=== PATIENT | female | born 1960 | race African-American/Black ===

== ENCOUNTER 2020-10-06 17:46 | Emergency (ER) | payer MEDICAID ==
[~2020-10-06] VITALS: Ht 172.7 cm; Wt 72.6 kg
[~2020-10-06 17:46] MED LIST: AMLO10TA13 PO; LISI-275 PO
[2020-10-06 18:24] VITALS: BP 160/89
[2020-10-06 20:15] LABS: Basophils # (auto) 0 10 ^3/uL (0-0.2); Basophils % (auto) 0.2 % (0.0-2.0); Monocytes # (auto) 0.5 10 ^3/uL (0-1.3); Nucleated Red Blood Cells % 0.1 %
[2020-10-06 20:17] LABS: Eosinophils # (auto) 0 10 ^3/uL (0-0.8); Eosinophils % (auto) 0.4 % (0.0-7.0); Hematocrit 41.8 % (36.0-46.0); Hemoglobin 13.9 g/dL (12.2-16.2); Lymphocytes % (auto) 20.3 % (10.0-50.0); Mean Corpuscular Hemoglobin 26.7 pg (28.0-32.0); Mean Corpuscular Hgb Conc. 33.2 g/dL (32.0-36.0); Mean Corpuscular Volume 80.3 fL (80.0-100.0); Neutrophils # (auto) 7.5 10 ^3/uL (1.6-8.6); Neutrophils % (auto) 74.1 % (37.0-80.0); Platelet Count (auto) 221 10^3/uL (140-450); Red Cell Distribution Width 16.8 % (11.8-14.3); White Blood Cell 10.1 10^3/uL (4.4-10.8)
[2020-10-06 20:24] LABS: Albumin 4.3 g/dL (3.4-5.0); Calcium 9.2 mg/dL (8.5-10.1); Potassium 3.5 mmol/L (3.5-5.1)
[2020-10-06 20:28] LABS: Bilirubin, Total 0.8 mg/dL (0.2-1.0); Total Protein 8.8 g/dL (6.4-8.2)
[2020-10-06] MEDS ORDERED: ONDANSETRON HCL 4 MG/2 ML VIAL IV ONE (20:45)
[2020-10-06] MEDS ORDERED: fentaNYL CITRATE 100 MCG/2 ML VL IV ONE (20:45)
[2020-10-06] MEDS ORDERED: IOHEXOL 300 MG/ML 100ML BOTTLE IJ ONE (22:07)
[2020-10-06 22:19] LABS: Urine Bacteria FEW /hpf (None Seen); Urine Blood Negative /uL (Negative); Urine Hyaline Cast FEW /lpf (0 - 2); Urine Mucus FEW (None Seen); Urine WBC 7 /hpf (0 - 5)
[2020-10-07] MEDS ORDERED: SODIUM CHLORIDE 0.9% 1,000 ML IV ONE (03:00)
[2020-10-07] MEDS ORDERED: ONDANSETRON HCL 4 MG/2 ML VIAL IV ONE (03:00)
== END 2020-10-07 05:19 | disposition home or self-care (01) ==
LOC: ER 17:46
DX: K56.600 Partial intestinal obstruction, unspecified as to cause (principal); E11.9 Type 2 diabetes mellitus without complications; I10 Essential (primary) hypertension
CPT/HCPCS: 36415; 74177; 80053; 81001; 83605; 83690; 85025; 93005; 96361; 96374; 99285; J2405; J7030; Q9967

== ENCOUNTER 2021-08-17 12:28 | Emergency (ER) | payer MEDICAID ==
[~2021-08-17] VITALS: Ht 154.9 cm; Wt 71.7 kg
[~2021-08-17 12:28] MED LIST changes: +AMLO-496 PO; -AMLO10TA13 PO
[2021-08-17 12:44] VITALS: BP 149/80
== END 2021-08-17 17:27 | disposition left against medical advice (07) ==
LOC: ER 12:28
DX: H92.01 Otalgia, right ear (principal); Z53.21 Procedure and treatment not carried out due to patient leaving prior to being seen by health care provider

== ENCOUNTER 2023-02-10 16:12 | Emergency (ER) | payer MEDICAID ==
[~2023-02-10] VITALS: Ht 157.5 cm; Wt 74.6 kg
[2023-02-10 17:45] VITALS: BP 146/85
[2023-02-10] MEDS ORDERED: KETOROLAC TROMETH 60MG/2ML VIAL IM ONE (17:45)
[2023-02-10] MEDS ORDERED: METH750T22 PO (17:54)
[2023-02-10] MEDS ORDERED: IBUP800T27 PO (17:54)
== END 2023-02-10 18:20 | disposition home or self-care (01) ==
LOC: ER 16:12
DX: S29.012A Strain of muscle and tendon of back wall of thorax, initial encounter (principal); M19.011 Primary osteoarthritis, right shoulder; E11.9 Type 2 diabetes mellitus without complications; I10 Essential (primary) hypertension; Z88.6 Allergy status to analgesic agent; X58.XXXA Exposure to other specified factors, initial encounter; Y93.89 Activity, other specified; Y92.89 Other specified places as the place of occurrence of the external cause; Y99.8 Other external cause status
CPT/HCPCS: 73030; 93005; 96372; 99283; J1885